=== PATIENT | female | born 1955 | race Caucasian/White ===

== ENCOUNTER 2016-06-15 14:47 | Emergency (ER) | payer OTHER ==
--- NOTE | ~2016-06-15 | CR172 ---
[facility] A Service of [facility] & [facility] RADIOLOGY TEXT RESULTS PATIENT: EMERSON GENTILE LOCATION: SED : 53 UNIT #: [id number] AGE: [address]: BRENDON MEJÍA PA-C SEX: F ORDER DR: [id number] [address] [address] [id number] MR#: [id number] Acc #: [id number] NAME: EMERSON GENTILE : 1955 SEX: F STUDY DATE/TIME: 06/15/2016 14:37 UNIT: SED ROOM: STUDY DESCRIPTION: CR Knee 3 Views Lt Attending Physician: Brendon Mejía Pa-C Ordering Physician: Brendon Mejía Pa-C Primary Care Physician: Jonn Powers D.O. MEDICAL IMAGING REPORT This report is preliminary unless electronic signature is present. EXAM Left knee series dated 06/15/2016 COMPARISON None HISTORY Anterior knee pain with laceration following fall at 5 a.m. this morning FINDINGS Three views of the left knee were obtained. There is a large laceration noted in the anterior aspect of the knee overlying the patella. No obvious associated radiopaque foreign body, acute displaced underlying fracture or dislocation. No obvious bony abnormality or significant joint effusion could be seen. Mild subcutaneous emphysema is probably present. Dictated by... Elodia Salazar M.D. THIS IS AN ELECTRONICALLY VERIFIED REPORT Elodia Salazar M.D. at 06/16/2016 11:16 AM CPR/to TD: 06/15/2016 18:46 JOB #: [id number] MEDICAL IMAGING REPORT Page 1 of 1
[~2016-06-15 14:47] MED LIST: NEURONTIN; ROPINIROLE HCL5 MG
== END 2016-06-15 17:06 | disposition home or self-care (01) ==
LOC: SED 14:47
DX: S81.012A Laceration without foreign body, left knee, initial encounter (principal); F32.9 Major depressive disorder, single episode, unspecified; F17.210 Nicotine dependence, cigarettes, uncomplicated; Z23 Encounter for immunization; W18.09XA Striking against other object with subsequent fall, initial encounter; Y92.098 Other place in other non-institutional residence as the place of occurrence of the external cause
CPT/HCPCS: 12002; 73562; 90471; 90715; 99283

== ENCOUNTER 2016-11-05 12:37 | Inpatient (IN) | payer OTHER ==
[~2016-11-05] VITALS: Ht 157.5 cm; Wt 66.8 kg
--- NOTE | ~2016-11-05 | DS ---
Unit #: [id number] #: [id number] Patient: EMERSON GENTILE [id number] [address] [place], [place] [address] [id number] I MR#: [id number] NAME: EMERSON GENTILE ROOM: 331 Age: 61 Sex: F Admission Date: 11/05/2016 : 1955 Discharge Date: 11/07/2016 Attending Physician: Dolly Suarez M.D. Primary Care Physician: Jonn Powers D.O. DISCHARGE SUMMARY REASON FOR ADMISSION Dyspnea. HISTORY OF PRESENT ILLNESS/HOSPITAL COURSE The patient is a 61-year-old female with underlying history of COPD, hypothyroidism, restless leg syndrome. Presented secondary to dyspnea. Initial chest x-ray findings performed in the emergency room showed bibasilar airspace disease. She was noted also to be acutely hypoxic. She was thus admitted under the premise of acute hypoxic respiratory failure, COPD exacerbation, as well as, community-acquired pneumonia. Through her hospital course, she received appropriate IV Solu-Medrol, aerosols, as well as, other routine medications. She had shown improvement. She remains on 2 L O2 via nasal cannula. Oxygen evaluation is currently being done both at rest as well as during ambulation. She may ultimately require O2 at time of discharge. CT chest without contrast was performed on November 06, 2016. It did reveal findings consistent with the aforementioned acute infiltrate. There were also findings in consideration of qkrnqful-da-shejhr emphysema changes. Blood cultures this hospital admission were negative. Hemoglobin Ac1 was also ascertained at 5.3. She did have elevated blood sugars likely secondary to IV Solu-Medrol and it does present her at a higher risk for developing type 2 diabetes moving forward. Today at time of discharge, she is otherwise feeling well. Creatinine is 0.5. CBC shows a white count of 12.3, hemoglobin 12.4. She will be discharged home with followup with her PCP in approximately one to two weeks. FINAL DISCHARGE DIAGNOSES 1. Acute hypoxic respiratory failure. 2. Acute exacerbation of chronic obstructive pulmonary disease. 3. Community-acquired pneumonia. 4. Ongoing tobacco abuse. 5. Hypothyroidism. 6. Restless leg syndrome. 7. Obesity. 8. Elevated blood sugars secondary to IV Solu-Medrol, hemoglobin A1c 5.3%. FINAL DISCHARGE MEDICATIONS 1. Neurontin 300 mg p.o. nightly. Unit #: [id number] #: [id number] Patient: EMERSON GENTILE 2. Neurontin 100 mg p.o. b.i.d. 3. Requip 2 mg p.o. q.a.m. 4 mg p.o. nightly. 4. Chantix take as directed. 5. Multivitamin daily. 6. Tramadol 50 mg p.o. q.6 p.r.n. 7. Levaquin 750 mg p.o. daily x10 days. 8. Prednisone 40 mg p.o. daily x5 days, then 20 mg p.o. daily x5 days. 9. Symbicort 160/4.5 two puffs b.i.d. 10. Albuterol MDI one to two puffs q.6 p.r.n. DISCHARGE CONDITION Stable. DISCHARGE DISPOSITION Home. Dictated by... Turner Lujan/yuki TD: 11/10/2016 09:15 JOB #: [id number] DISCHARGE SUMMARY Page 1 of 1 X Dolly Suarez MD X DISCHARGE SUMMARY
--- NOTE | ~2016-11-05 | CR72 ---
[facility] A Service of [facility] / [facility] RADIOLOGY TEXT RESULTS PATIENT: EMERSON GENTILE LOCATION: [facility] 331- : 53 UNIT #: [id number] AGE: [address]: Dolly Suarez MD SEX: F ORDER DR: [id number] [facility] [address] [facility]. [place], [place] [address] [id number] I MR#: [id number] Acc #: [id number] NAME: EMERSON GENTILE : 1955 SEX: F STUDY DATE/TIME: 11/05/2016 18:07 UNIT: [address] ROOM: [facility] STUDY DESCRIPTION: CR Chest Single View Portable Attending Physician: Dolly Suarez M.D. Ordering Physician: Aurelio Pritchard M.D. Primary Care Physician: Jonn Powers D.O. MEDICAL IMAGING REPORT This report is preliminary unless electronic signature is present EXAM AP portable chest 18:07, 11/05/2016. HISTORY 61-year-old female with shortness of breath since 11/04/2016. COMPARISON PA and lateral chest 11/05/2016 at 11:14. FINDINGS Bibasilar airspace disease is similar to prior. There may be trace bilateral pleural effusions. Interstitial opacities are present within the lungs, increased compared to the study performed earlier today. Heart size is within normal limits. No pneumothorax. IMPRESSION 1. Right greater left basilar airspace disease persists. Correlate clinically for pneumonia. 2. Probable trace bilateral pleural effusions. 3. Increasing interstitial markings within auv-gw-ioobn lung zones compared to earlier today may represent changes of superimposed interstitial edema. Dictated by... Dianne Tan M.D. THIS IS AN ELECTRONICALLY VERIFIED REPORT Dianne Tan M.D. at 11/06/2016 2:21 PM LLH/gz TD: 11/06/2016 08:22 JOB #: [id number] [facility] A Service of [facility] / [facility] RADIOLOGY TEXT RESULTS PATIENT: EMERSON GENTILE LOCATION: [facility] 331-01 : 53 UNIT #: [id number] AGE: [address]: Dolly Suarez MD SEX: F ORDER DR: MEDICAL IMAGING REPORT Page 1 of 1 COPY
--- NOTE | ~2016-11-05 | CT57 ---
[facility] A Service of [facility] & [facility] RADIOLOGY TEXT RESULTS PATIENT: EMERSON GENTILE LOCATION: [facility] : 53 UNIT #: [id number] AGE: [address]: Dolly Suarez MD SEX: F ORDER DR: [id number] [facility] [address]. [place], [place] [address] [id number] I MR#: [id number] Acc #: [id number] NAME: EMERSON GENTILE : 1955 SEX: F STUDY DATE/TIME: 11/06/2016 11:25 UNIT: C3A PCU ROOM: [facility] STUDY DESCRIPTION: CT Chest Wo Cont Attending Physician: Dolly Suarez M.D. Ordering Physician: Dolly Suarez M.D. Primary Care Physician: Jonn Powers D.O. MEDICAL IMAGING REPORT This report is preliminary unless electronic signature is present EXAM CT chest without contrast 11/06/2016 HISTORY Cough. Shortness of breath. Symptoms since 11/04/2016. Airspace disease on recent chest x-ray. COMPARISON AP portable chest 11/05/2016. TECHNIQUE This CT exam was performed with one or more of the following radiation dose reduction techniques: automatic exposure control, adjustment of mA and/or kV according to patient size, and iterative reconstruction. FINDINGS Dense bilateral lower lobe consolidations with air bronchograms are present. Lesser degree airspace disease changes are present in the lingula and right middle lobe. Upper lobes appear relatively clear. Moderate to moderately advanced emphysematous changes are present. Small right pleural effusion is noted. The main pulmonary artery and right and left central pulmonary artery branches are enlarged, suggesting changes of pulmonary arterial hypertension in the appropriate clinical context. No pneumothorax. Included portions of the upper abdominal organs have a normal noncontrast appearance. No acute osseous abnormalities are identified. IMPRESSION [facility] A Service of [facility] & [facility] RADIOLOGY TEXT RESULTS PATIENT: EMERSON GENTILE LOCATION: [facility] : 53 UNIT #: [id number] AGE: [address]: Dolly Suarez MD SEX: F ORDER DR: 1. Dense bilateral lower lobe airspace disease with air bronchograms, thought most likely to represent changes of pneumonia. Findings are greatest in the right lower lobe. Lesser degree atelectasis or pneumonia is present in the right middle lobe and lingula. 2. Moderate to voxhxgvp-kr-bandsd emphysematous changes. 3. The central pulmonary arteries appear enlarged. Correlate clinically for pulmonary arterial hypertension. 4. Small right pleural effusion. Dictated by... Dianne Tan M.D. THIS IS AN ELECTRONICALLY VERIFIED REPORT Dianne Tan M.D. at 11/07/2016 1:54 PM DONNELL/yinka TD: 11/06/2016 22:12 JOB #: [id number] MEDICAL IMAGING REPORT Page 1 of 1 COPY
--- NOTE | ~2016-11-05 | EKG ---
PATIENT: EMERSON GENTILE UNIT #: [id number] Ventricular Rate: 81 BPM Atrial Rate: 81 BPM P-R Interval: 148 ms QRS Duration: 68 ms Q-T Interval: 406 ms QTC Calculation(Bezet): 471 ms P [place]: 62 degrees Calculated R [place]: -44 degrees Calculated T [place]: 39 degrees Diagnosis Line: Normal sinus rhythm Diagnosis Line: Possible Left atrial enlargement Diagnosis Line: Left axis deviation Diagnosis Line: Possible Right ventricular hypertrophy Diagnosis Line: Abnormal ECG Diagnosis Line: No previous ECGs available Diagnosis Line: Confirmed by YONG BAUER MD ([id number]) on 11/05/2016 Diagnosis Line: 7:00:41 PM INTERPRETING MD: JUANCARLOS COX
--- NOTE | ~2016-11-05 | HP ---
Unit #: [id number] #: [id number] Patient: EMERSON GENTILE [id number] [facility]. [place], [place] [address] [id number] I MR#: [id number] NAME: EMERSON GENTILE ROOM: 331 Age: 61 Sex: F Admission Date: 11/05/2016 : 1955 Attending Physician: Talita Stevenson M.D. Primary Care Physician: Jonn Powers D.O. HISTORY AND PHYSICAL CHIEF COMPLAINT Short of air. HISTORY OF PRESENT ILLNESS The patient is a 61-year-old female with past medical history of likely COPD, hypothyroidism, restless leg syndrome, who presented to the emergency department from her primary care physician's office for evaluation of the above. The patient states that she started feeling bad yesterday. She reports increasing shortness of breath, productive cough, fever and chills. She denies any chest pain. She states that her appetite has been good. She denies any vomiting or diarrhea. In the emergency department initial oxygen saturation was 85% on room air, pulse 90, temperature 99.5. Chest x-ray shows bibasilar airspace disease. She was given Solu-Medrol 125 mg as well as Rocephin and azithromycin in the emergency department. She is being admitted to [facility] for evaluation and further treatment. PAST MEDICAL HISTORY 1. The patient denies recent hospitalizations. 2. Likely COPD. The patient has not had spirometry and has not seen a tire trucker but does have a 83-kqcm-mjga smoking history. 3. Hypothyroidism. 4. Restless leg syndrome. PAST SURGICAL HISTORY Tubal ligation. SOCIAL HISTORY The patient lives alone. She smokes a pack of cigarettes daily. She has a 80-rswk-bnbd smoking history. She reports occasional alcohol use. She is retired. FAMILY HISTORY Family history is notable for her mother having hypertension as well as cerebrovascular accident. ALLERGIES No known allergies. HOME MEDICATIONS Unit #: [id number] #: [id number] Patient: EMERSON GENTILE 1. Neurontin 300 mg q.h.s. and 100 mg b.i.d. 2. Requip 2 mg q.a.m. and 4 mg q.h.s. 3. Ultram 50 to 100 mg q.6 h. p.r.n. REVIEW OF SYSTEMS A complete review of systems is negative except as indicated in the HPI. DIAGNOSTIC STUDIES CARDIOVASCULAR: EKG shows normal sinus rhythm with a rate of 81 beats per minute. IMAGING: Chest x-ray shows bibasilar airspace disease. LABORATORY: Comprehensive metabolic panel notable for glucose of 123. Complete blood count notable for white blood cell count of 12.6, MCV is 104.3, troponin is less than 0.05. PHYSICAL EXAMINATION VITAL SIGNS: Temperature is 99.5. Pulse is 90. Respirations 17. Blood pressure 164/103. Oxygen saturation 85% on room air. Most recently 95% on 2 L. GENERAL: The patient is a female who is awake and alert, in no acute distress. HEENT: The head is atraumatic. Mucous membranes are moist. NECK: Neck is supple. Trachea is midline. CARDIOVASCULAR: Regular rate and rhythm. LUNGS: Demonstrate a few scattered wheezes. Breathing is not labored with conversation. ABDOMEN: Abdomen is soft, nontender, with bowel sounds present in all four quadrants. EXTREMITIES: Are nontender. There is trace pedal edema. NEUROLOGIC: The patient is awake and alert. She follows commands. PSYCHIATRIC: Mood and affect are normal. The patient is cooperative. SKIN: Skin of examined areas is warm and dry. ASSESSMENT The patient is a 61-year-old female with: 1. Acute respiratory failure, hypoxic. 2. Pneumonia, community-acquired. The patient received Rocephin and azithromycin in the emergency department. 3. Likely chronic obstructive pulmonary disease exacerbation. The patient received Solu-Medrol. 4. Sepsis. A lactic acid has not been ordered. 5. Hypothyroidism. 6. Restless leg syndrome. 7. Tobacco abuse. PLAN 1. Admit to intermediate level. 2. Healthy heart diet. 3. Normal saline at 75 mL an hour. 4. Supplemental oxygen. 5. DuoNeb q.4 h. while awake and q.2 h. p.r.n. 6. Solu-Medrol 80 mg IV q.12 h. 7. Rocephin and azithromycin for community-acquired pneumonia pending further workup. 8. Mucinex 600 mg p.o. b.i.d. 9. Sepsis protocol with STAT lactic acid and repeat. Unit #: [id number] #: [id number] Patient: EMERSON GENTILE 10. Check BNP. 11. Serial cardiac enzymes. 12. P.r.n. Tylenol 13. Check TSH. 14. SCDs for DVT prophylaxis. 15. Protonix for GI prophylaxis since the patient will be on Solu-Medrol. 16. Repeat labs in the morning. 17. Additional workup and consultants based on above. Dictated by Turner Mccoy/riky TD: 11/05/2016 20:31 JOB #: [id number] HISTORY AND PHYSICAL Page 1 of 1 X Talita Stevenson MD X HISTORY AND PHYSICAL
[2016-11-05 15:16] LABS: BASOPHIL# 0.1 X10e3 (0-0.3); BASOPHIL% 0.5 % (0-2.5); EOSINOPHIL% 0.1 % (0.0-7.0); HEMATOCRIT 42.3 % (35.0-45.0); HEMOGLOBIN 14.1 gm/dL (12.0-16.0); LYMPHOCYTE# 2.2 X10e3 (1.0-3.5); LYMPHOCYTE% 17.3 % (17.0-45.0); MEAN CELL VOLUME 104.3 FL (83-96); MEAN CORPUSCULAR HEMOGLOBIN 34.7 PG (28-34); MEAN CORPUSCULAR HGB CONC 33.3 g/dL (30-36); MEAN PLATELET VOLUME 7.4 FL (6.5-11.5); MONOCYTE# 0.8 X10e3 (0-1.0); MONOCYTE% 6.1 % (3.0-12.0); NEUTROPHIL# 9.6 X10e3 (1.5-7.1); PLATELET COUNT 228 X10e3 (140-420); RED BLOOD COUNT 4.06 X10e (3.90-5.30); RED CELL DISTRIBUTION WIDTH 14.8 % (11.0-15.5); WHITE BLOOD COUNT 12.6 X10e3 (4.0-10.5)
[2016-11-05 15:18] LABS: DIFF IND NO
[2016-11-05 15:41] LABS: BILIRUBIN, DIRECT 0.2 mg/dL (0.0-0.2); BILIRUBIN,INDIRECT 0.4 mg/dL (0.0-0.9); BILIRUBIN,TOTAL 0.6 mg/dL (0.2-2.0); BUN/CREATININE RATIO 18.57; CALCIUM SERUM 9.1 mg/dL (8.4-10.2); CREATININE SERUM 0.7 mg/dL (0.6-1.4); GLOM FILT RATE Estimated 92.2 mL/min (>60); POTASSIUM 3.5 mmol/L (3.5-5.1); PROTEIN TOTAL SERUM 7.6 g/dL (6.0-8.3)
[2016-11-05 15:57] LABS: POC - CKMB <1.0 ng/mL (0.0-7.9); POC - TROPONIN <0.05 ng/mL (<=0.05)
[2016-11-05 17:25] LABS: POC - CKMB <1.0 ng/mL (0.0-7.9); POC - TROPONIN <0.05 ng/mL (<=0.05)
[2016-11-05] MEDS ORDERED: PATIENT'S PHARMACY (17:38)
[2016-11-05] MEDS ORDERED: NEURONTIN100 MG PO (17:38)
[2016-11-05] MEDS ORDERED: ALPRAZOLAM ER0.5 MG PO (17:38)
[2016-11-05] MEDS ORDERED: GABAPENTIN400 M2 PO (17:38)
[2016-11-05] MEDS ORDERED: REQUIP2 MG PO (17:39)
[2016-11-05] MEDS ORDERED: ULTRAM PO (17:39)
[2016-11-05 23:46] LABS: CK TOTAL 32 IU/L (26-140)
[2016-11-06 04:32] LABS: BASOPHIL% 0.1 % (0-2.5); HEMATOCRIT 42.5 % (35.0-45.0); HEMOGLOBIN 13.8 gm/dL (12.0-16.0); LYMPHOCYTE# 0.6 X10e3 (1.0-3.5); LYMPHOCYTE% 7.9 % (17.0-45.0); MEAN CELL VOLUME 106.1 FL (83-96); MEAN CORPUSCULAR HEMOGLOBIN 34.5 PG (28-34); MEAN CORPUSCULAR HGB CONC 32.5 g/dL (30-36); MEAN PLATELET VOLUME 7.6 FL (6.5-11.5); MONOCYTE# 0.1 X10e3 (0-1.0); MONOCYTE% 1.3 % (3.0-12.0); NEUTROPHIL% 90.7 % (40-75); PLATELET COUNT 225 X10e3 (140-420); RED CELL DISTRIBUTION WIDTH 14.6 % (11.0-15.5); WHITE BLOOD COUNT 7.7 X10e3 (4.0-10.5)
[2016-11-06 04:33] LABS: DIFF IND YES
[2016-11-06 04:49] LABS: CK TOTAL 33 IU/L (26-140)
[2016-11-06 04:51] LABS: ALBUMIN SERUM 3.2 g/dL (3.5-5.0); BILIRUBIN,TOTAL 0.3 mg/dL (0.2-2.0); BUN/CREATININE RATIO 18.57; CALCIUM SERUM 8.3 mg/dL (8.4-10.2); CREATININE SERUM 0.7 mg/dL (0.6-1.4); GLOM FILT RATE Estimated 92.2 mL/min (>60); POTASSIUM 3.7 mmol/L (3.5-5.1); PROTEIN TOTAL SERUM 6.8 g/dL (6.0-8.3)
[2016-11-06 04:54] LABS: ANISOCYTOSIS MOD; PLATELET ESTIMATE NORMAL (NORMAL)
[2016-11-06 06:11] LABS: THYROID STIMULATING HORMONE 3.85 uIU/ml (0.34-5.60)
[2016-11-06 06:18] LABS: FREE THYROXIN (T4) 0.72 ng/dL (0.58-1.64)
[2016-11-06 06:57] LABS: URINE SOURCE CLEAN CATCH
[2016-11-06 07:10] LABS: URINE APPEARANCE CLEAR; URINE BILIRUBIN NEG (NEG); URINE BLOOD NEG (NEG); URINE COLOR DK YELLOW; URINE GLUCOSE >1000 MG/DL (NEG); URINE KETONE 1+ (NEG); URINE LEUKOCYTE ESTERASE NEG (NEG); URINE NITRATE NEG (NEG); URINE PH 5.5 (5-8); URINE PROTEIN TRACE (NEG); URINE SPECIFIC GRAVITY 1.032 (1.003-1.035)
[2016-11-06 07:15] LABS: CULTURE INDICATED? NO
[2016-11-06 07:40] LABS: AMPHETAMINE NEG (NEG); BARBITURATES NEG (NEG); BENZODIAZEPINES NEG (NEG); COCAINE NEG (NEG); MARIJUANA NEG (NEG); OPIATES NEG (NEG); TRICYCLIC ANTIDEPRESSANTS NEG (NEG); U METHADONE NEG (NEG)
[2016-11-07 06:18] LABS: HEMATOCRIT 38.1 % (35.0-45.0); HEMOGLOBIN 12.4 gm/dL (12.0-16.0); MEAN CELL VOLUME 105.6 FL (83-96); MEAN CORPUSCULAR HEMOGLOBIN 34.4 PG (28-34); MEAN CORPUSCULAR HGB CONC 32.5 g/dL (30-36); MEAN PLATELET VOLUME 7.7 FL (6.5-11.5); RED BLOOD COUNT 3.61 X10e (3.90-5.30); RED CELL DISTRIBUTION WIDTH 14.8 % (11.0-15.5)
[2016-11-07 06:37] LABS: WHITE BLOOD COUNT 12.3 X10e3 (4.0-10.5)
[2016-11-07 10:51] LABS: CALCIUM SERUM 8.7 mg/dL (8.4-10.2); CREATININE SERUM 0.5 mg/dL (0.6-1.4); POTASSIUM 4.2 mmol/L (3.5-5.1)
[2016-11-07] MEDS ORDERED: ACETAMINOPHEN650 M3 PO (11:32)
[2016-11-07] MEDS ORDERED: NEURONTIN100 MG PO (11:33)
[2016-11-07] MEDS ORDERED: ROPINIROLE HCL4 MG PO (11:34)
[2016-11-07] MEDS ORDERED: LEVAQUIN750 MG PO (11:35)
[2016-11-07] MEDS ORDERED: PREDNISONE10 M1 (11:36)
[2016-11-07] MEDS ORDERED: SYMBICORT INH (11:36)
[2016-11-07] MEDS ORDERED: ALBUTEROL MININEB NEB (11:37)
[2016-11-07] MEDS ORDERED: CHANTIX1 EACH (11:38)
== END 2016-11-07 15:29 | disposition home or self-care (01) | DRG 189 ==
LOC: CED 12:37 → C3A PCU 19:40 → CEDOF 19:40 → CED 20:01 → C3A PCU 20:30 → CEDOF 20:30 → C3A PCU 20:30
PROVIDERS: Emergency Medicine; Family Medicine; Internal Medicine
DX: J96.01 Acute respiratory failure with hypoxia (principal); J18.9 Pneumonia, unspecified organism; J44.0 Chronic obstructive pulmonary disease with (acute) lower respiratory infection; J44.1 Chronic obstructive pulmonary disease with (acute) exacerbation; E03.9 Hypothyroidism, unspecified; G25.81 Restless legs syndrome; F17.210 Nicotine dependence, cigarettes, uncomplicated; E66.9 Obesity, unspecified; R73.9 Hyperglycemia, unspecified; T38.0X5A Adverse effect of glucocorticoids and synthetic analogues, initial encounter; Z68.31 Body mass index [BMI] 31.0-31.9, adult
CPT/HCPCS: 36415; 71010; 71250; 80048; 80053; 80076; 80307; 81003; 82550; 82553; 82947; 83036; 83605; 83880; 84439; 84443; 84484; 85025; 85027; 87040; 93005; 94640; 94760; 96374; 96375; 99285; J0456; J0696; J1815; J2405; J2930